=== PATIENT | female | born 2000 | race Caucasian/White ===

== ENCOUNTER 2019-11-16 14:45 | Inpatient (IN) | payer BC ==
[~2019-11-16] VITALS: Ht 167.6 cm; Wt 75.9 kg
[2019-11-27] MEDS ORDERED: OXYTOCIN 30U/ 0.9% NaCL 500ML 500 ML IV PRN (17:24)
[2019-11-27] MEDS ORDERED: OXYTOCIN 30U/ 0.9% NaCL 500ML 500 ML IV ONE (17:24)
[2019-11-27] MEDS ORDERED: TERBUTALINE 1 MG/ML, 1ML IVPush PRN (17:30)
[2019-11-27] MEDS ORDERED: CALCIUM CARBONATE 500 MG TAB.CHEW PO PRN (17:30)
[2019-11-27] MEDS ORDERED: TERBUTALINE 1 MG/ML, 1ML SQ PRN (17:30)
[2019-11-27] MEDS ORDERED: ONDANSETRON 2MG/ML, 2ML IVPush PRN (17:30)
[2019-11-27] MEDS ORDERED: FENTANYL PF 100 MCG/2ML IV PRN (17:30)
[2019-11-27] MEDS ORDERED: NEWBORN KIT ONE (17:37)
[2019-11-27] MEDS ORDERED: OXYTOCIN 30U/ 0.9% NaCL 500ML 500 ML ONE (17:38)
[2019-11-27] MEDS ORDERED: MISOPROSTOL 200 MCG TABLET ONE (17:38)
[2019-11-27] MEDS ORDERED: LIDOCAINE 1%, 20ML ONE (17:38)
[2019-11-27 17:54] LABS: BASOPHILS # (AUTO) 0.05 x10^3/uL (0-0.3); BASOPHILS % (AUTO) 1 % (0-1); EOSINOPHILS # (AUTO) 0.15 x10^3/uL (0-0.8); EOSINOPHILS % (AUTO) 2 % (1-7); LYMPHOCYTES # (AUTO) 1.43 x10^3/uL (1-6.1); LYMPHOCYTES % (AUTO) 17 % (22-44); MD NO; MEAN CORPUSCULAR HEMOGLOBIN 26.9 pg (27.0-34.8); MEAN CORPUSCULAR HGB CONC 32.3 g/dL (32.4-35.8); MEAN CORPUSCULAR VOLUME 83.2 fL (80-100); MEAN PLATELET VOLUME 9.3 fL (7.4-10.4); MONOCYTES # (AUTO) 0.44 x10^3/uL (0-1.4); MONOCYTES % (AUTO) 5 % (2-9); NEUTROPHILS # (AUTO) 6.44 x10^3/uL (1.8-8.0); NEUTROPHILS % (AUTO) 76 % (42-75); PLATELET COUNT 224 x10^3/uL (130-400); RED BLOOD COUNT 4.27 x10^6/uL (3.82-5.3); RED CELL DISTRIBUTION WIDTH 14.8 % (9.6-15.2)
[2019-11-27] MEDS ORDERED: MISOPROSTOL 25 MCG TABLET ONE ×2 (17:54→22:57)
[2019-11-27 17:56] VITALS: BP 131/81
[2019-11-27] MEDS ORDERED: LACTATED RINGERS 1,000 ML IV SCH (19:00)
[2019-11-27] MEDS ORDERED: D5%-LACTATED RINGERS 1,000 ML IV SCH (19:00)
[2019-11-27] MEDS: MISOPROSTOL 25 MCG TABLET VG PRN ×2 (19:00→23:00)
[2019-11-28] MEDS ORDERED: FENTANYL PF 100 MCG/2ML ONE ×2 (07:25→09:31)
[2019-11-28] MEDS: FENTANYL PF 100 MCG/2ML IVPush PRN ×2 (07:30→09:32)
[2019-11-28] MEDS ORDERED: FENTANYL/BUPIV./NS/PF 250 ML EPIDCONT SCH (19:33)
[2019-11-28] MEDS ORDERED: LACTATED RINGERS 1,000 ML IV SCH (19:33)
[2019-11-28] MEDS ORDERED: BUPIVACAINE 0.25% ONE ×2 (19:42→19:45)
[2019-11-28] MEDS ORDERED: FENTANYL/BUPIV./NS/PF 250 ML EPIDCONT ONE ×2 (19:43→19:45)
[2019-11-28] MEDS ORDERED: EPHEDRINE 50 MG/ML, 1ML ONE ×2 (19:45→20:17)
[2019-11-28] MEDS ORDERED: EPHEDRINE 50 MG/ML, 1ML IVPush PRN (20:00)
[2019-11-28] MEDS ORDERED: LACTATED RINGERS 1,000 ML IVBOLUS PRN (20:00)
[2019-11-28] MEDS ORDERED: NALOXONE 0.4 MG/ML, 1ML IVPush PRN (20:00)
[2019-11-28] MEDS ORDERED: ONDANSETRON 2MG/ML, 2ML ONE (20:28)
[2019-11-29] MEDS ORDERED: OXYTOCIN 30U/ 0.9% NaCL 500ML 500 ML IV SCH (01:51)
[2019-11-29] MEDS ORDERED: HYDROcodone/APAP 5/325 TABLET PO PRN ×2 (02:00)
[2019-11-29] MEDS ORDERED: BISACODYL 10 MG SUPP PR PRN (02:00)
[2019-11-29] MEDS ORDERED: ACETAMINOPHEN 325 MG TABLET PO PRN ×2 (02:00)
[2019-11-29] MEDS ORDERED: ONDANSETRON 2MG/ML, 2ML IV PRN (02:00)
[2019-11-29] MEDS ORDERED: CALCIUM CARBONATE 500 MG TAB.CHEW PO PRN (02:00)
[2019-11-29] MEDS ORDERED: SIMETHICONE 80 MG CHEW TAB PO PRN (02:00)
[2019-11-29] MEDS ORDERED: MISOPROSTOL 200 MCG TABLET PR PRN (02:00)
[2019-11-29] MEDS ORDERED: IBUPROFEN 600 MG TABLET ONE (02:38)
[2019-11-29] MEDS: IBUPROFEN 600 MG TABLET PO PRN ×3 (02:40→18:43)
[2019-11-29] MEDS ORDERED: OXYTOCIN 30U/ 0.9% NaCL 500ML 500 ML ONE (03:17)
[2019-11-29] MEDS: OXYTOCIN 30U/ 0.9% NaCL 500ML 500 ML IV SCH ×3 (03:17→21:51)
[2019-11-29 04:00] VITALS: BP 111/76
[2019-11-29] MEDS: DOCUSATE 100 MG CAPSULE PO PRN (08:44)
[2019-11-29] MEDS: PRENATAL VIT/IRON/FA 1 EACH TABLET PO SCH (08:44)
[2019-11-29 09:02] VITALS: BP 115/77
[2019-11-29 09:46] LABS: MEAN CORPUSCULAR HEMOGLOBIN 26.7 pg (27.0-34.8); MEAN CORPUSCULAR VOLUME 83.5 fL (80-100); MEAN PLATELET VOLUME 8.5 fL (7.4-10.4); PLATELET COUNT 174 x10^3/uL (130-400); RED BLOOD COUNT 3.61 x10^6/uL (3.82-5.3); RED CELL DISTRIBUTION WIDTH 14.9 % (9.6-15.2)
[2019-11-29 10:10] LABS: BASOPHILS # (AUTO) 0.04 x10^3/uL (0-0.3); BASOPHILS % (AUTO) 0 % (0-1); EOSINOPHILS % (AUTO) 0 % (1-7); LYMPHOCYTES # (AUTO) 1.59 x10^3/uL (1-6.1); LYMPHOCYTES % (AUTO) 12 % (22-44); MD SCAN; MONOCYTES # (AUTO) 0.64 x10^3/uL (0-1.4); MONOCYTES % (AUTO) 5 % (2-9); NEUTROPHILS # (AUTO) 11.43 x10^3/uL (1.8-8.0); NEUTROPHILS % (AUTO) 84 % (42-75)
[2019-11-29 12:53] VITALS: BP 105/75
[2019-11-29 16:10] VITALS: BP 112/67
[2019-11-29 20:00] VITALS: BP 116/71
[2019-11-30 00:40] VITALS: BP 116/75
[2019-11-30] MEDS: IBUPROFEN 600 MG TABLET PO PRN ×2 (00:42→07:30)
[2019-11-30 07:20] VITALS: BP 124/81
[2019-11-30] MEDS: PRENATAL VIT/IRON/FA 1 EACH TABLET PO SCH (07:29)
[2019-11-30] MEDS: DOCUSATE 100 MG CAPSULE PO PRN (07:29)
[2019-11-30] MEDS ORDERED: MEASLES,MUMPS&RUBELLA VACC/PF 0.5 ML SQ-VACC ONE (07:30)
[2019-11-30] MEDS ORDERED: DIPH,PERTUSS(ACELL),TET VAC/PF NC IM-VACC ONE (07:30)
[2019-11-30] MEDS ORDERED: IBUP-1222 PO (09:41)
== END 2019-11-30 12:40 | disposition home or self-care (01) | DRG 807 ==
LOC: LDIP 11-27 17:20 → 2NW 11-29 03:35
PROVIDERS: ADMIT Obstetrics & Gynecology; ATTEND Obstetrics & Gynecology
PROC: 10E0XZZ Delivery of Products of Conception, External Approach (ICD-10-PCS; principal; 2019-11-29)
PROC: 0KQM0ZZ Repair Perineum Muscle, Open Approach (ICD-10-PCS; 2019-11-29)
PROC: 10907ZC Drainage of Amniotic Fluid, Therapeutic from Products of Conception, Via Natural or Artificial Opening (ICD-10-PCS; 2019-11-29)
PROC: 3E0R3BZ Introduction of Anesthetic Agent into Spinal Canal, Percutaneous Approach (ICD-10-PCS; 2019-11-29)
PROC: 00HU33Z Insertion of Infusion Device into Spinal Canal, Percutaneous Approach (ICD-10-PCS; 2019-11-29)
DX: O48.0 Post-term pregnancy (principal); Z37.0 Single live birth; O70.1 Second degree perineal laceration during delivery; O32.6XX0 Maternal care for compound presentation, not applicable or unspecified; O76 Abnormality in fetal heart rate and rhythm complicating labor and delivery; Z3A.41 41 weeks gestation of pregnancy
CPT/HCPCS: 36415; J7121; 82803; 85025; 86592; 86850; 86900; 90715; G0378; J2405; J3010; J3490; J2590; J7120